=== PATIENT | male | born 1960 | race Caucasian/White ===

== ENCOUNTER → 2020-03-12 14:57 | Outpatient (CLI) | payer BC, SELFPAY ==
--- NOTE | ~2020-03-12 | CT_ITS ---
EXAMINATION: CT abdomen wo con DATE: 03/12/2020 15:22 INDICATION: Umbilical hernia with obstruction, without gangrene TECHNIQUE: Computed tomography (CT) of the abdomen was performed without intravenous contrast. Automa juan exposure control and iterative reconstruction technique were employed. Exam dose: 757.90 mGy-cm total exam DLP. COMPARISON: None. FINDINGS: Status post sternotomy. Mitral valve replacement. Right atrial and ventricular pacemaker le ads. Minimal dependent atelectasis of the lower lobes. Heart size is normal. No pericardial or pleural eff usion. Small sliding hiatal hernia. The liver, gallbladder, bile ducts, spleen, pancreas and pancreatic duct as well as adrenal glands ar e unremarkable on this limited noncontrast examination. No renal mass lesion is evident. No urinary t ract calculus or hydroureteronephrosis. There is atherosclerotic calcification of the abdominal aorta but no aneurysm. No intraperitoneal or retroperitoneal or pelvic mass lesion or adenopathy or ascites. Normal appendix. No bowel obstruction or intraperitoneal free air. Ventral multilocular midline fat-containing abdominal wall hernia. Not completely imaged on this CT a bdomen only examination. Included skeletal structures are unremarkable. IMPRESSION: Ventral mid abdominal wall hernia containing fat; no bowel herniation Status post sternotomy and mitral valve replacement Right atrioventricular pacemaker leads Small sliding hiatal hernia Reviewed, dictated and finalized at [facility]. Reviewed, dictated and finalized at location [facility]. 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
== END ==
PROVIDERS: PCP Family Medicine; Visit Provider Surgery
DX: K42.9 Umbilical hernia without obstruction or gangrene (principal); K44.9 Diaphragmatic hernia without obstruction or gangrene; K43.9 Ventral hernia without obstruction or gangrene; Z95.2 Presence of prosthetic heart valve
CPT/HCPCS: 74150

== ENCOUNTER 2020-03-16 15:08 | Outpatient (CLI) | payer BC, SELFPAY ==
--- NOTE | 2020-03-16 15:10 | ECG_ITS ---
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
== END 2020-03-16 15:09 | disposition home or self-care (01) ==
LOC: ANHSURGERY 15:10
PROVIDERS: PCP Family Medicine; Visit Provider Surgery
DX: K42.0 Umbilical hernia with obstruction, without gangrene (principal); Z01.818 Encounter for other preprocedural examination; I10 Essential (primary) hypertension; I45.10 Unspecified right bundle-branch block
CPT/HCPCS: 36415; 86850; 86900; 86901; 93005

== ENCOUNTER 2020-03-20 01:51 | Outpatient (CLI) | payer BC, SELFPAY ==
[2020-03-20 18:32] LABS: SARS-CoV-2 RNA PCR Negative
== END 2020-03-20 01:52 | disposition home or self-care (01) ==
LOC: ANHCOVIDDT 01:51
PROVIDERS: PCP Family Medicine; Visit Provider Surgery
DX: Z01.812 Encounter for preprocedural laboratory examination (principal); Z20.828 Contact with and (suspected) exposure to other viral communicable diseases
CPT/HCPCS: 87635; C9803; U0003

== ENCOUNTER 2020-03-24 02:39 | Day surgery (SDC) | payer BC, SELFPAY ==
[2020-03-11 14:03] VITALS: BMI 34.1
[2020-03-24] VITALS (9 sets, daily range): BP systolic 101–143; BP diastolic 55–80; PULSE 60–83; RESP 10–20; TEMP 36.2–36.6; O2SAT 92–97; BMI 35.1
[2020-03-24] MEDS: ACETAMINOPHEN 500 MG TABLET 1000 MG PO (06:35)
[2020-03-24] MEDS: KETOROLAC 15 MG/ML VIAL (*BKC) IV PUSH (06:36)
[2020-03-24] MEDS: LACTATED RINGERS 1,000 ML 30 ML IV CONT ×2 (06:36→09:45)
--- NOTE | 2020-03-24 06:50 | P.PNAN_ITS ---
Anes - Initial Pre Proc Eval Procedure: Operation Date: 03/24/20 07:30 Proposed Procedures p Laparoscopic Recurrent Incarcerated Umbilical Hernia Repair With Mesh, Davinci Assisted - Jas Gayle DO Date/Time: 03/24/20 06:50 Surgeon: Jas Gayle DO Pre Op Diagnosis: Recurrent Incarcerated Umbilical Hernia Patient Data Age: 59 Gender: M Height: 5 ft 10 in Weight: 111 kg Last Vital Signs Temp 36.6 C 03/24/20 06:20 Pulse 81 03/24/20 06:20 Resp 20 03/24/20 06:20 BP 143/80 H 03/24/20 06:20 Pulse Ox 97 03/24/20 06:20 Allergies Allergy/AdvReac Type Severity Reaction Status Date / Time No Known Allergies Allergy Verified 03/24/20 06:13 Home Medications Medication Instructions Recorded Confirmed Type apixaban 5 mg tablet 5 mg PO BID 10/27/19 03/24/20 History aspirin 81 mg tablet,delayed 81 mg PO DAILY 10/27/19 03/24/20 History release atorvastatin 10 mg tablet 10 mg PO DAILY #90 tablet 11/17/19 03/24/20 Rx sildenafil 50 mg tablet 50 mg PO DAILY PRN #30 tablet 11/17/19 03/24/20 Rx amlodipine 10 mg PO QAM 03/11/20 03/24/20 History losartan 100 mg PO QAM 03/11/20 03/24/20 History Patient hx anesthesia problems: none Family hx anesthesia problems: none PMFSH Past Medical History Medical History Essential (primary) hypertension History of umbilical hernia Paroxysmal A-fib Pure hypercholesterolemia Surgical History Surgical History H/O umbilical hernia repair Umbilical hernia repair 2008 Dr. Almonte Ventral hernia repair with mesh 2013 Dr. Simon Presence of cardiac pacemaker Status post bilateral inguinal hernia repair right x 2, left x 1 Status post mitral valve repair Family History Family History Mother Family history of alcoholism Family history of liver disease Social History Social History Smoking packs per day: 1 Smoking cigarettes per day: 20.0 Years smoked: 15 Smoking pack-years: 15.00 Smoking status: Former smoker Smoking end date: 10/22/19 Alcohol intake: current Drinks per week: 3 Alcohol use details: 5 DRINKS/MONTH Substance use: never Substance use type: does not use Living arrangements: with family Additional living arrangements comments: SIGNIFICANT OTHER- [facility] 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 Gender identity (if verbalized by the patient): Female Spiritual care concerns: No Anes - Eval Final PreProcedure Day of Procedure 03/24/20 06:50 Patient weight: obese Heart: regular rate and rhythm Lungs: clear to auscultation Airway: Mallampati scale class II and other (upper plate) Neurological: alert and oriented Last oral intake: >/= 8 hours ASA classification: III Emergent: no Anesthetic plan: proceed Anesthesia type and monitoring: general ETT and standard monitoring Informed Consent: The patient's anesthetic plan and its attendant risks and benefits were discussed with the patient/family/POA. Questions were solicited and answers provided to the satisfaction of the patient/famil
--- NOTE | 2020-03-24 07:07 | WPDHPUPDATE1 ---
History and Physical Update Update Date/Time: 03/24/20 07:07 History and Physical has been reviewed, including an updated exam of the patient. There are NO changes in the patient's condition. Risks, benefits, and alternatives have been discussed and questions answered. Patient agrees to proceed with procedure.
--- NOTE | 2020-03-24 07:22 | SUR.PREOP ---
0720; PT WALKED TO BATHROOM. VOIDED
[2020-03-24] MEDS: ceFAZolin 2 GM/D5W 50 ML 2 GM/50 ML BAG IVPB (07:53)
--- NOTE | 2020-03-24 08:36 | SUR.OPER ---
Implant/Symbotex Composite Mesh [id number], exp 2024-09-20 Umbilical.
--- NOTE | 2020-03-24 09:38 | PM.PROC ---
Procedure Note - Detailed Date of procedure: 03/24/20 Pre-op diagnosis: Recurrent Incarcerated Umbilical Hernia Post-op diagnosis: same Procedure performed: 1. Laparoscopic incarcerated recurrent umbilical hernia repair with Symbotex mesh, da Eula assisted 2. Laparoscopic removal of mesh foreign body Description of procedure: Procedure as well as risks, benefits, and alternatives were discussed with the patient. Written consent was obtained and placed in chart prior to procedure. Patient was brought back to surgical suite. He was placed supine on operating table. Time-out was done to confirm patient and procedure. He was then intubated by the anesthesia department. A bump was placed under his left hip, and the bed was flexed slightly to extend the space between his costal margin and iliac crest. His abdomen was prepped and draped in sterile fashion using chlorhexidine prep. A 5 millimeter incision was made in the left upper quadrant, and a 5 millimeter Optiview trocar was advanced through the abdominal layers under direct visualization. Once inside the abdominal cavity, carbon dioxide insufflation was used to create a pneumoperitoneum. His abdomen was inspected. An 8 millimeter incision was made in the left lower quadrant, and an 8 millimeter robotic trocar was placed under direct visualization. Another 8 millimeter incision was made in the left lateral abdomen, and an 8 millimeter robotic trocar was placed under direct visualization. Exparel was infiltrated along the lateral abdominal daniels to perform a transversus abdominis plane block bilaterally. The 5 millimeter port was removed, the incision was extended to 12 millimeters, and a 12 millimeter air seal port was placed under direct visualization. A Brian-Lewis cone was also used to place an 0-Vicryl simple interrupted suture at this trocar site. The robotic arms were brought up to the patient's bedside and secured to the ports. The camera and instruments were inserted, and I then moved over to the robotic console and took control of the camera and instruments. After careful thorough inspection of the abdominal cavity, I began my dissection at the hernia. The incarcerated omentum was dissected free and reduced from within the hernia sac. The old mesh and preperitoneal fat was then excised and removed. The falciform ligament was then taken down for several cm cephalad. I then measured the hernia size. The hernia measured 2 cm by 2 cm. The fascia was closed using an 0-Stratafix running suture in a vertical fashion. A 10 cm x 15 cm Symbotex mesh was then placed within the abdominal cavity. This was oriented vertically with the mesh centered on the hernia defect. The mesh was then secured around the perimeter using 2-0 V-lock running absorbable suture. The repair was inspected, and one final inspection was made around the abdominal cavity. The robotic instruments were then removed, and the robotic arms were disengaged from the trocars. The ports were then removed under direct visualization, the camera was removed, and the pneumoperitoneum was released. The 0 Vicryl transfascial suture was tied down. The skin of the incisions was then approximated using 4-0 Monocryl subcuticular suture. Exofin glue was then applied on top. The patient was then awakened from anesthesia, extubated, and transferred to recovery. Anesthesia: GETA and local (Exparel) Surgeon: Jas Gayle DO Estimated blood loss (mL): 5 Drains: No Complications: No immediate complications Condition: stable Disposition: same day Findings: This is a 59-year-old man who presented with complaints of a painful bulge near his umbilicus. This has been bothering him for the past couple years and has been gradually enlarging. He has a prior history of primary umbilical hernia repair 8-10 years ago and then also had a recurrent hernia repair with mesh about [address] of his abdomen was obtained and this showed evidence of t
[2020-03-24] MEDS: fentaNYL CITRATE INJ (*CRX) 100 MCG/2 ML VIAL 25 MCG IV PUSH ×4 (10:17→10:32)
[2020-03-24] MEDS: oxyCODONE HCL (*CRX) 5 MG TAB IR PO (11:04)
== END 2020-03-24 12:02 | disposition home or self-care (01) ==
PROVIDERS: PCP Family Medicine; Visit Provider Surgery
PROC: (CPT 49653; principal; 2020-03-24 07:30)
DX: K42.0 Umbilical hernia with obstruction, without gangrene (principal); I48.0 Paroxysmal atrial fibrillation; I10 Essential (primary) hypertension; E78.00 Pure hypercholesterolemia, unspecified; Z79.01 Long term (current) use of anticoagulants; Z79.82 Long term (current) use of aspirin; Z95.0 Presence of cardiac pacemaker; Z87.891 Personal history of nicotine dependence; E66.9 Obesity, unspecified; Z68.35 Body mass index [BMI] 35.0-35.9, adult
CPT/HCPCS: 49653; S2900; 88300; A9270; C1781; C9290; J0690; J1100; J1885; J2250; J2405; J2704; J2710; J3010; J7030; J7120

== ENCOUNTER 2020-11-06 08:39 | Outpatient (CLI) | payer BC, SELFPAY ==
[2020-11-06 09:05] LABS: Hemoglobin A1C 5.3 % (<5.7)
[2020-11-06 09:06] LABS: Add Urine Microscopic? YES; Appearance Urine Clear (Clear); Bacteria Urine Trace /hpf; Bilirubin Urine Negative (Negative); Blood Urine Negative (Negative); Color Urine Yellow (Yellow); Glucose Urine UA Negative (Negative); Ketones Urine Negative (Negative); Leukocyte Esterase Ur Negative LEU/UL (NEGATIVE); Mucus Urine Rare /lpf; Nitrate Urine Negative (Negative); Protein Urine Negative (Negative); RBC Urine 0-2 /hpf (0-2); Specific Grav Ur 1.026 (1.001-1.035); Squamous Epithelial Cell Urine Rare /hpf (Few); WBC Urine 0-3 /hpf (0-3)
[2020-11-06 09:09] LABS: Alanine Aminotransferase 31 U/L (4-50); Albumin Level 4.5 g/dL (3.5-5.1); Alkaline Phosphatase 70 U/L (38-126); Anion Gap 9 mmol/L (8-16); Aspartate Amino Transferase 29 U/L (17-59); Bilirubin,Total 0.8 mg/dL (0.2-1.3); Blood Urea Nitrogen 19 mg/dL (9-20); Calcium 9.7 mg/dL (8.4-10.2); Carbon Dioxide 25 mmol/L (22-30); Chloride 106 mmol/L (98-107); Cholesterol 141 mg/dL (0-200); Estimated Glomerular Filt Rate > 60; Glucose 102 mg/dL (65-110); HDL Direct 34 mg/dL; Potassium 3.9 mmol/L (3.4-5.0); Sodium 140 mmol/L (137-145); Triglycerides 153 mg/dL (<150)
[2020-11-06 09:20] LABS: LDL Cholesterol Direct 66 mg/dL
[2020-11-06 09:23] LABS: Hematocrit 45.6 % (42.0-52.0); Hemoglobin 15.7 g/dL (14.0-18.0); Mean Corpuscular HGB Conc 34.4 g/dl (32-36); Mean Corpuscular Hemoglobin 30.5 pg (26-34); Mean Corpuscular Volume 88.5 fl (80-100); Mean Platelet Volume 11.3 fl (7.4-10.4); Platelet Count Result 221 k/mm3 (150-375); Red Blood Count 5.15 M/mm3 (4.6-6.20); Red Cell Distribution Width 13.2 % (11.5-14.5); White Blood Count 6.1 K/mm3 (4.5-10.0)
[2020-11-06 09:40] LABS: Prostate Specific Antigen 0.3 ng/mL (< OR = 4.0)
== END 2020-11-06 08:40 | disposition home or self-care (01) ==
PROVIDERS: PCP Family Medicine; Visit Provider Family Medicine
DX: R73.01 Impaired fasting glucose (principal); E78.00 Pure hypercholesterolemia, unspecified; I10 Essential (primary) hypertension
CPT/HCPCS: 36415; 80053; 80061; 81001; 83036; 84153; 84443; 85027

== ENCOUNTER → 2021-02-15 16:07 | Outpatient (CLI) | payer BC, SELFPAY ==
--- NOTE | ~2021-02-15 | XR_ITS ---
XR knee RT 3V, XR knee LT 3V 02/15/2021 17:05 Indication: Bilateral knee pain Procedure: 3 views each knee Comparison: No prior studies for comparison. Findings: There is anatomic alignment. No significant joint space narrowing. No joint effusion. No ac klet[place] de[place] fracture or traumatic malalignment. There is a corticated ossific density dorsal to the right fem ur seen on the lateral view, possibly related to remote trauma. Impression: 1: No acute bone or joint abnormality. Reviewed, dictated and finalized at location A. Impression: 1: No acute bone or joint abnormality. Impression: 1: No acute bone or joint abnormality.
== END ==
PROVIDERS: PCP Family Medicine; Visit Provider Nurse Practitioner Family
DX: M25.562 Pain in left knee (principal); M25.561 Pain in right knee
CPT/HCPCS: 73562

== ENCOUNTER 2022-09-20 01:58 | Day surgery (SDC) | payer BC, SELFPAY ==
[2022-08-29 14:00] VITALS: BMI 37.3
--- NOTE | 2022-09-19 16:06 | PM.HPGS ---
History of Present Illness History of Present Illness Consent: Risks, benefits, and alternatives have been discussed and questions answered. Patient agrees to proceed with procedure. Chief complaint: hx colon polyps Narrative: Leighton Romero is a 61 year old male referred for colon cancer screening. Six years ago he had a colonoscopy with removal of at least 1 adenomatous polyp Review of Systems Review of Systems: All systems reviewed & are unremarkable except as noted in HPI and below PMFSH Past Medical History Medical History Anxiety Essential (primary) hypertension History of umbilical hernia MARCIE (obstructive sleep apnea) Paroxysmal A-fib Pure hypercholesterolemia REM sleep behavior disorder Surgical History Surgical History H/O umbilical hernia repair Umbilical hernia repair 2008 Dr. Almonte Ventral hernia repair with mesh 2013 Dr. Simon 03/24/20 Laparoscopic incarcerated recurrent umbilical hernia repair with Symbotex mesh, da Eula assisted, Laparoscopic removal of mesh foreign body Presence of cardiac pacemaker Status post bilateral inguinal hernia repair right x 2, left x 1 Status post mitral valve repair Family History Family History Mother Family history of alcoholism Family history of liver disease Social History Social History Smoking packs per day: 1 Smoking cigarettes per day: 20.0 Years smoked: 20 Smoking pack-years: 20.00 Smoking status: Current every day smoker Tobacco type: cigarettes Smoking end date: 10/22/19 Alcohol intake: current Drinks per week: 5 Alcohol use details: 5 DRINKS/MONTH Substance use: never Substance use type: does not use Living arrangements: with friend(s) Additional living arrangements comments: SIGNIFICANT OTHER- [facility] Occupation/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: occupation 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 Gender identity (if verbalized by the patient): Male Spiritual care concerns: No Meds Home Medications and Allergies Home Medications Medication Instructions Recorded Confirmed Type apixaban 5 mg tablet (Eliquis) 5 mg PO BID 10/27/19 08/29/22 History aspirin 81 mg tablet,delayed 81 mg PO DAILY 10/27/19 08/29/22 History release (Adult Low Dose Aspirin) sildenafil 50 mg tablet 50 mg PO DAILY PRN sexual activity 11/17/19 08/29/22 Rx #30 tabs cyanocobalamin (vitamin B-12) 500 500 mcg PO DAILY 02/14/21 08/29/22 History mcg tablet atorvastatin 10 mg tablet 10 mg PO DAILY #90 tabs 09/20/21 08/29/22 Rx losartan 100 mg tablet See Rx Instructions .Route 09/20/21 08/29/22 Rx .COMPLEX #90 tabs amlodipine 10 mg tablet See Rx Instructions .Route 09/22/21 08/29/22 Rx .COMPLEX #90 tabs Allergies Allergy/AdvReac Type Severity Reaction Status Date / Time No Known Allergies Allergy Verified 09/20/22 10:11 Exam Const: General: alert Orientation/consciousness: patient oriented x3 Resp: Auscultation: clear to auscultation bilaterally Cardio: Rhythm: regular rhythm GI: GI Palp: Yes Soft to palpation and No Tenderness to palpation present (GI) Neuro: General: patient oriented x3 Assessment and Plan Assessment and plan (1) Colon cancer screening: Code(s): Z12.11 - Encounter for screening for malignant neoplasm of colon Status: Acute Assessment and Plan: Colonoscopy with possible biopsy or polypectomy or cautery or injection of substances.
[2022-09-20 10:14] VITALS: BP 122/80; PULSE 62; RESP 20; TEMP 36.4; O2SAT 97
[2022-09-20] MEDS: LACTATED RINGERS 1,000 ML 150 ML IV CONT (10:24)
--- NOTE | 2022-09-20 11:28 | WPDANESEPPF ---
Anes - Initial Pre Proc Eval Procedure: Operation Date: 09/20/22 11:30 Proposed Procedures p Colonoscopy - Seth Alvarez MD Date/Time: 09/20/22 11:28 Surgeon: Seth Alvarez MD Pre Op Diagnosis: hx colon polyps Patient Data Age: 61 Gender: M Height: 1.78 m Weight: 115.4 kg Last Vital Signs Temp 97.6 F 09/20/22 10:14 Pulse 62 09/20/22 10:14 Resp 20 09/20/22 10:14 BP 122/80 09/20/22 10:14 Pulse Ox 97 09/20/22 10:14 O2 Del Method Room Air 09/20/22 10:14 Allergies Allergy/AdvReac Type Severity Reaction Status Date / Time No Known Allergies Allergy Verified 09/20/22 10:11 Home Medications Medication Instructions Recorded Confirmed Type apixaban 5 mg tablet (Eliquis) 5 mg PO BID 10/27/19 08/29/22 History aspirin 81 mg tablet,delayed 81 mg PO DAILY 10/27/19 08/29/22 History release (Adult Low Dose Aspirin) sildenafil 50 mg tablet 50 mg PO DAILY PRN sexual activity 11/17/19 08/29/22 Rx #30 tabs cyanocobalamin (vitamin B-12) 500 500 mcg PO DAILY 02/14/21 08/29/22 History mcg tablet atorvastatin 10 mg tablet 10 mg PO DAILY #90 tabs 09/20/21 08/29/22 Rx losartan 100 mg tablet See Rx Instructions .Route 09/20/21 08/29/22 Rx .COMPLEX #90 tabs amlodipine 10 mg tablet See Rx Instructions .Route 09/22/21 08/29/22 Rx .COMPLEX #90 tabs Patient hx anesthesia problems: none Family hx anesthesia problems: none Results Review: All pre-operative results and documents have been reviewed as part of the pre-operative evaluation. [facility] Past Medical History Medical History Anxiety Essential (primary) hypertension History of umbilical hernia MARCIE (obstructive sleep apnea) Paroxysmal A-fib Pure hypercholesterolemia REM sleep behavior disorder Surgical History Surgical History H/O umbilical hernia repair Umbilical hernia repair 2008 Dr. Almonte Ventral hernia repair with mesh 2013 Dr. Simon 03/24/20 Laparoscopic incarcerated recurrent umbilical hernia repair with Symbotex mesh, da Eula assisted, Laparoscopic removal of mesh foreign body Presence of cardiac pacemaker Status post bilateral inguinal hernia repair right x 2, left x 1 Status post mitral valve repair Family History Family History Mother Family history of alcoholism Family history of liver disease Social History Social History Smoking packs per day: 1 Smoking cigarettes per day: 20.0 Years smoked: 20 Smoking pack-years: 20.00 Smoking status: Current every day smoker Tobacco type: cigarettes Smoking end date: 10/22/19 Alcohol intake: current Drinks per week: 5 Alcohol use details: 5 DRINKS/MONTH Substance use: never Substance use type: does not use Living arrangements: with friend(s) Additional living arrangements comments: SIGNIFICANT OTHER- [facility] Occupation/Education: occupation 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 Informed Consent: The patient's anesthetic plan and its attendant risks and benefits were discussed with the patient/family/POA. Questions were solicited and answers provided to the satisfaction of the patient/family/POA.
[2022-09-20 11:35] VITALS: BP 97/58; PULSE 65; RESP 13; O2SAT 92
--- NOTE | 2022-09-20 11:36 | SUR.OPER ---
Ascending Colon polyp retrieved using Rothnet per Dr. Alvarez.
[2022-09-20 11:45] VITALS: BP 105/70; PULSE 72; RESP 21; O2SAT 95
--- NOTE | 2022-09-20 11:54 | SUR.PHASEII ---
Per Dr Alvarez, pt should resume 09/23/22. This was noted on pt's discharge paperwork and pt verbalized understanding.
[2022-09-20 11:55] VITALS: BP 107/73; PULSE 64; RESP 22; O2SAT 98
== END 2022-09-20 12:20 | disposition home or self-care (01) ==
PROVIDERS: PCP Family Medicine; Visit Provider Internal Medicine Gastroenterology
PROC: 0DJD8ZZ Inspection of Lower Intestinal Tract, Via Natural or Artificial Opening Endoscopic (ICD-10-PCS; CPT 45378; principal; 2022-09-20 11:30)
DX: Z12.11 Encounter for screening for malignant neoplasm of colon (principal); D12.2 Benign neoplasm of ascending colon; K64.8 Other hemorrhoids; I10 Essential (primary) hypertension; I48.0 Paroxysmal atrial fibrillation; E78.00 Pure hypercholesterolemia, unspecified; G47.33 Obstructive sleep apnea (adult) (pediatric); F41.9 Anxiety disorder, unspecified; Z95.0 Presence of cardiac pacemaker; F17.210 Nicotine dependence, cigarettes, uncomplicated; E66.9 Obesity, unspecified; Z68.36 Body mass index [BMI] 36.0-36.9, adult; Z79.01 Long term (current) use of anticoagulants; Z79.82 Long term (current) use of aspirin
CPT/HCPCS: 45381; 45385; 88305; J2001; J2704; J7120

== ENCOUNTER 2023-09-24 14:03 | Outpatient (CLI) | payer BC, SELFPAY ==
--- NOTE | ~2023-09-24 | XR_ITS ---
Lumbosacral Spine: AP, oblique, and lateral views Clinical History: Pain COMPARISON: 02/12/2011 Findings: The normal lordotic curve is maintained. No acute fracture evident. There is grade 1 retrol isthesis of L3 over L4. There is moderate degenerative disc narrowing at L1-L2, mild degenerative dis c change at the remaining disc levels. There is advanced facet arthropathy at L4-L5 and L5-S1. Chroni c minimal anterior wedging deformity of L1 noted. The sacroiliac joints are normally outlined. Impression: [id number] degenerative spondylosis, as above, especially the lower lumbar spine. Mild chronic anterior wedging deformity of L1. Reviewed, dictated and finalized at location . Impression: [id number] degenerative spondylosis, as above, especially the lower lumba r spine. Mild chronic anterior wedging deformity of L1.
== END 2023-09-24 14:04 ==
LOC: MICIMG 14:06
PROVIDERS: PCP Family Medicine; Visit Provider Physician Assistant
DX: M54.50 Low back pain, unspecified (principal); M43.06 Spondylolysis, lumbar region; M48.56XA Collapsed vertebra, not elsewhere classified, lumbar region, initial encounter for fracture
CPT/HCPCS: 72110

== ENCOUNTER 2023-12-03 08:18 | Emergency (ER) | payer BC, SELFPAY ==
[2023-12-03 08:30] VITALS: BP 123/77; PULSE 80; RESP 20; TEMP 36.7; O2SAT 98
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
== END 2023-12-03 08:58 | disposition home or self-care (01) ==
PROVIDERS: Emergency Provider Nurse Practitioner; PCP Family Medicine
DX: T22.212A Burn of second degree of left forearm, initial encounter (principal); X08.8XXA Exposure to other specified smoke, fire and flames, initial encounter; L08.9 Local infection of the skin and subcutaneous tissue, unspecified; Z87.891 Personal history of nicotine dependence; I10 Essential (primary) hypertension; I48.0 Paroxysmal atrial fibrillation; E78.00 Pure hypercholesterolemia, unspecified; Z95.0 Presence of cardiac pacemaker; Z79.82 Long term (current) use of aspirin; Z79.01 Long term (current) use of anticoagulants
CPT/HCPCS: 99213; G0463

== ENCOUNTER 2024-11-14 00:20 | Day surgery (SDC) | payer BC, SELFPAY ==
[2024-11-13 14:42] VITALS: BMI 28.4
[2024-11-14] VITALS (11 sets, daily range): BP systolic 102–128; BP diastolic 69–88; PULSE 70–79; RESP 10–17; TEMP 36.3; O2SAT 94–99; BMI 28.4
--- OUTSIDE RECORDS SUMMARY | 2024-11-14 00:24 | XMS_ITS | Encounter Summary ---
Author Organization [facility] Healthcare Address [address] [place] [id number] Care Team Providers Care Livestock Sales Representative Name Role Phone Kaz Mg MD Primary Care Provider Encounter Details Date Type Department Care Team (Late st Contact Info) Description 11/13/2024 Telephone [facility] Medical Group Cardiology [address] [place] [phone] Sakina Orr MD [address] [place] [id number] Social History Tobacco Use Types Packs/Day Years Used Date Smoking Tobacco: Former Smokeless Tobacco: Never Alcohol Use Standard Drinks/Week Comments Yes 0 (1 standard drink = 0.6 oz pur e alcohol) Sex and Gender Information Value Date Recorded Sex Assigned at Not on file Legal Sex Male 11:20 AM CDT Gender Identity Not on file Sexual Orientation Not on file documented as of this encounter Miscellaneous Notes * Telephone Encounter - Nimco Gonzalez RN - 11/13/2024 2:16 PM CDT FYI-WK and CT Scheduled pt for CV at 11/14 at 0830. Reviewed instructions and pt verbalized understanding. Per pt he has not missed any doses of eliquis in the last 30 days. * Telephone Encounter - Marizol Moore NP - 11/13/2024 12:38 PM CDT I forgot Dr. Orr is out of the office right now. Let's offer to get patient scheduled for a cardioversion as long as he hasn't missed any doses of Eliquis. Thanks. * Telephone Encounter - Marizol Moore NP - 11/13/2024 10:50 AM CDT My initial thought is to schedule him for a cardioversion as long as he hasn't missed any doses of Eliquis in the last 30 days, but we can wait and see if Dr. Orr agrees or has another recommendation. * Telephone Encounter - Alcira Herzog RN - 11/13/2024 8:36 AM CDT [employer] Dual Pacemaker Dx; CHB, PAF. DOI 12/14/2016. Latitude remote monitoring Q3 mo, Office pacer checks Q1 yr. Office DDD Pacemaker evaluation demonstrated appropriate device function. Left pectoral incision well approximated without signs of infection. Battery function-Ok, 1.0 year remaining battery life to CHINO. Appropriate lead measurements noted. Presenting rhythm-Aflutter VS. AP-3%, DINING CAR CONDUCTOR-3%. 73 Atrial high rate episodes noted. Per Atrial [place] trend patient in AT/AF since beginning of October 2024. Ventricular rate controlled. Patient reports feeling more tired with AT/AF. No Ventricular high rate episodes noted. Medications; Eliquis. No programming changes made to device settings. See scanned report. Office device f/u due post generator replacement. Latitude remote f/u 02/18/2025. Patient asked what can be done regarding his atrial burden? He verbally expressed concerns of long-term affects of ongoing atrial fib/atrial flutter. Patient has appointment to see Dr Orr on 03/09/2025. Will forward to Marizol Palencia NP for review and treatment options. documented in this encounter Plan of Treatment Not on file documented as of this encounter Visit Diagnoses Not on filedocumented in this encounter Care Teams Livestock Sales Representative Relationship Specialty Start Date End Date Kaz Mg MD [address] [facility] [address] [place] [address] PCP - General 12/05/16 documented as of this encounter
--- OUTSIDE RECORDS SUMMARY | 2024-11-14 00:24 | XMS_ITS | Clinical Summary ---
Author Organization [facility] Address [address] [place] [phone] Care Team Providers Care Assistant Boiler Operator Name Role Phone Kaz Mg MD Primary Care Provider Allergies No known active allergies Medications atorvastatin (LIPITOR) 10 mg tablet take 1 tablet by oral route every day 0 0 7 Active losartan (COZAAR) 100 mg tablet Take 0.5 tablets (50 mg total) by mouth daily Active cyanocobalamin (Vitamin B-12) 500 mcg tabletIndicatio ns:Prevention of Vitamin B12 Deficiency Take 1 tablet (500 mcg total) by mouth daily Active aspirin 81 mg tablet Take 1 tablet (81 mg total) by mouth daily Active amLODIPine (NORVASC) 10 mg tabletIndicatio ns:Essential hypertension, benign Take 1 tablet (10 mg total) by mouth daily. 30 tablet 11 7 Active sildenafiL (VIAGRA) 50 mg tablet Take 1 tablet (50 mg total) by mouth as needed for erectile dysfunction Active Wegovy 1.7 mg/0.75 mL auto-injector Inject 0.75 mL (1.7 mg total) under the skin once 4 Active Eliquis 5 mg tablet TAKE 1 TABLET TWICE A DAY 180 tablet 3 4 Active Active Problems Problem Noted Date Diagnosed Date MARCIE (obstructive sleep apnea) 02/27/2022 S/P mitral valve repair 12/22/2019 PAF (paroxysmal atrial fibrillation) 12/22/2019 Hyperlipidemia 12/16/2018 Overview (12/16/2018): Hyperlipidemia BMI 34.0-34.9,adult 09/10/2017 Assessment & Plan (09/10/2017 9:29 AM CDT): Gained 12 lb since last visit. I advised patient counseled him about the importance of diet monitoring Pericardial effusion 02/12/2017 Assessment & Plan (03/19/2017 9:46 AM LICENSED PSYCHOLOGIST MANAGER): Reduction of the pericardial effusion from large to small. Likely residual from open-heart surgery. Improved. Assessment & Plan (02/12/2017 10:47 AM CDT): Suspect residual pericardial effusion from open-heart surgery. However I will repeat a limited echocardiogram in 1 month to reassess this pericardial effusion. Abdominal pain 01/10/2017 Cardiac pacemaker in situ 12/15/2016 Overview (12/15/2016): [employer] Dual Pacemaker Dx; CHB DOI 12/14/2016. Latitude remote monitoring Q3 mo, Office pacer checks Q1 yr. Assessment & Plan (09/10/2017 9:29 AM CDT): Arrange for pacemaker interrogation. Assessment & Plan (03/19/2017 9:46 AM LICENSED PSYCHOLOGIST MANAGER): Will schedule patient to see Alcira for pacemaker interrogation. Assessment & Plan (02/12/2017 10:48 AM CDT): Will do pacemaker interrogation next visit. Assessment & Plan (01/15/2017 9:13 AM CDT): Baseline EKG today is normal sinus rhythm. Today pacemaker interrogation shows that he is ventricular paced 97% of the time. The PVR interval is short and when we did prolongation of the NE interval he is not pacing anymore and he has intrinsic rhythm. Reinterrogate the device in 1 month Mitral valve insufficiency 11/28/2016 Non-rheumatic mitral regurgitation 10/09/2016 Assessment & Plan (09/10/2017 9:28 AM CDT): Status post mitral valve repair with a ring. Asymptomatic. Continue to observe. Assessment & Plan (03/19/2017 9:45 AM LICENSED PSYCHOLOGIST MANAGER): Status post mitral valve ring. There is evidence that he has maybe mild mitral stenosis. Mean gradient 7 Assessment & Plan (02/12/2017 10:48 AM CDT): Continue aspirin 81 mg daily. Assessment & Plan (01/15/2017 9:09 AM CDT): He is status post mitral valve repair. Continue aspirin 81 mg daily. Will obtain echocardiogram to establish baseline gradient across the mitral valve. Assessment & Plan (11/13/2016 10:37 AM CDT): Severe mitral regurgitation. Will refer to Dr. Lema for mitral valve repair. Assessment & Plan (10/09/2016 1:29 PM CDT): Transesophageal echocardiogram suggestive of severe mitral regurgitation. Flail posterior mitral valve leaflet. Evidence of moderate pulmonary hypertension. Kassie systolic function. Will order coronary angiogram to define the coronary anatomy. After that we will refer the patient for mitral valve repair. Dyspnea on exertion 10/09/2016 Assessment & Plan (01/15/2017 9:10 AM CDT): Marked improvement in symptoms since the mitral wall repair. No significant coronary artery disease on catheterization Assessment & Plan (11/13/2016 10:36 AM CDT): No evidence of obstructive coronary artery disease on catheterization. Pulmonary function test showed fairly small airway disease pattern. Assessment & Plan (10/09/2016 1:30 PM CDT): This could be related to severe mitral regurgitation. But since the patient has been working in [employer] industry for a long time I will order pulmonary function test to exclude lung abnormalities as well. Essential hypertension, benign 10/09/2016 Assessment & Plan (09/10/2017 9:28 AM CDT): Blood pressure is controlled. Continue current treatment. Assessment & Plan (03/19/2017 9:45 AM LICENSED PSYCHOLOGIST MANAGER): Add amlodipine 10 mg p.o. daily. Reassess next visit. Encouraged the patient to stay away from salt. Assessment & Plan (02/12/2017 10:48 AM CDT): A blood pressure is elevated on this visit and on the previous visit. Increase losartan from 50 mg daily to 100 mg daily. Reassess next visit. Assessment & Plan (01/15/2017 9:11 AM CDT): Blood pressure is elevated today. He has stopped taking [id number] mg and losartan 100 mg and he is only on metoprolol 12.5 mg b.i.d.. I advised patient to resume losartan 50 mg daily. Reassess in 1 month Assessment & Plan (11/13/2016 10:37 AM CDT): Controlled Assessment & Plan (10/09/2016 1:30 PM CDT): Controlled. Encounters Date Type Department Care Team Description 11/13/2024 Telephone [facility] Cardiology [address] [place] [address] [place] [phone] Sakina Orr MD 11/12/2024 3:00 PM CDT Ancillary Procedure [facility] Cardiology [address] [facility] [address] [place] [phone] Cardiac pacemaker in situ (Primary Dx); CHB (complete heart block) (HCC); PAF (paroxysmal atrial fibrillation) (HCC) 11/12/2024 Orders Only [facility] Cardiology [address] [place] [address] [place] [phone] Sakina Orr MD PAF (paroxysmal atrial fibrillation) (HCC) (Primary Dx); Cardiac pacemaker in situ; CHB (complete heart block) (HCC) 09/17/2024 8:30 AM CDT Ancillary Procedure [facility] Cardiology [address] [place] [address] [place] [phone] Cardiac pacemaker in situ (Primary Dx); CHB (complete heart block) (HCC); PAF (paroxysmal atrial fibrillation) (HCC) from Last 3 Months Surgical History Surgery Date Site/Laterality Comments HERNIA REPAIR Hernia repair MITRAL VALVE ANNULOPLASTY Medical History Medical History Date Comments Hyperlipidemia Hyperlipidemia Hypertension Hypertension Family History Medical History Relation Name Comments Car Accident Father accident; Alcohol abuse Mother Alcoholism; Relation Name Status Comments Father Mother (Age 50) Social History Tobacco Use Types Packs/Day Years Used Date Smoking Tobacco: Former Smokeless Tobacco: Never Tobacco Cessation:Counseling Given: Not Answered Alcohol Use Standard Drinks/Week Comments Yes 0 (1 standard drink = 0.6 oz pur e alcohol) Sex and Gender Information Value Date Recorded Sex Assigned at Not on file Legal Sex Male 11:20 AM CDT Gender Identity Not on file Sexual Orientation Not on file Obstetrics History Last Filed Vital Signs Vital Sign Reading Time Taken Comments Blood Pressure 126/74 03/11/2024 2:52 PM LICENSED PSYCHOLOGIST MANAGER Pulse 65 03/11/2024 2:52 PM LICENSED PSYCHOLOGIST MANAGER Temperature 36.8 C (98.2 F) 01/15/2020 8:05 AM CDT Respiratory Rate 16 01/15/2017 7:59 AM CDT Oxygen Saturation 96% 03/11/2024 2:52 PM LICENSED PSYCHOLOGIST MANAGER Inhaled Oxygen Concentration - - Weight 107 kg (236 lb) 03/11/2024 2:52 PM LICENSED PSYCHOLOGIST MANAGER Height 177.8 cm (5' 10) 03/11/2024 2:52 PM LICENSED PSYCHOLOGIST MANAGER Body Mass Index 33.86 03/11/2024 2:52 PM LICENSED PSYCHOLOGIST MANAGER Plan of Treatment Health Maintenance Due Date Last Done Comments Colon Cancer Screening-Colonoscopy 1960 Depression Screening 1960 Hepatitis C Screening 1960 Prostate Cancer Screening-PSA 1960 Hepatitis B Screening 1978 Regular Well Visit/Exam 18-64 1978 Zoster Vaccine (1 of 2) 2010 Influenza Vaccine (#1) 2024 DTaP/Tdap/Td Vaccine (2 - Td or Tdap) 11/22/2028 11/22/2018 Pneumococcal vaccine <65 Aged Out No longer eligible based on patient's age to complete this topic Medical Devices Implanted Type Area Tapper Balance Wheel Screw Hole Device Identifier Shelf Expiration Date Model / Serial / Lot Pacemaker-8/2 07/2016 Implanted: by Rossy Garza MD (Quantity not on file) Pacemaker Chest [employer] CHB ESSENTIO MRI [id number] / [id number] / [place] [address] [place] [address] Advance Directives For more information, please contact: [phone] Documents on File Type Date Recorded Patient Regulatory Compliance Officer Expl anation ADVANCE DIRECTIVE 01/16/2017 Advance Di rective Checklist Care Teams Assistant Boiler Operator Relationship Specialty Start Date End Date Kaz Mg MD [address] [place] [address] PCP - General 12/05/16
--- OUTSIDE RECORDS SUMMARY | 2024-11-14 00:24 | XMS_ITS | Encounter Summary ---
Author Organization [facility] Address [address] [facility] [address] [place] [address] Care Team Providers Care Laboratory Tech Name Role Phone Lex Cardenas MD Primary Care Provider [phone] Kza Mg MD Primary Care Provider Miscellaneous, Not In File Primary Care Provider Unavailable Kaz Mg MD Primary Care Provider Encounter Details Date Type Department Care Team ([facility] Contact Info) Description 08/30/2016 Orders Only [facility] ProviderElian MD [address] [place] [id number] Social History Tobacco Use Types Packs/Day Years Used Date Smoking Tobacco: Never Assessed Sex and Gender Information Value Date Recorded Sex Assigned at Not on file Legal Sex Male 11:20 AM CDT Gender Identity Not on file Sexual Orientation Not on file documented as of this encounter Plan of Treatment Not on file documented as of this encounter Procedures Procedure Name Priority Date/Time Associated Diagnosis Comments CARDIOLOGY REPORT 08/30/2016 documented in this encounter Results * CARDIOLOGY REPORT (08/30/2016) Anatomical Region Laterality Modality Other Narrative 08/30/2016 Ordered by an unspecified provider. Historical Provider [facility] JANY BOUDREAUX Final Result documented in this encounter Visit Diagnoses Not on filedocumented in this encounter Care Teams Laboratory Tech Relationship Specialty Start Date End Date Lex Cardenas MD [address] [place] [address] PCP - General 08/24/16 09/04/16 Kaz Mg MD [address] [place] [address] PCP - General 09/05/16 11/30/16 Miscellaneous, Not In File PCP - General 12/01/16 Kaz Mg MD [address] [place] [address] PCP - General 12/05/16 documented as of this encounter
--- OUTSIDE RECORDS SUMMARY | 2024-11-14 00:24 | XMS_ITS | Referral Summary ---
Author Organization [facility] Address [address] [place] [phone] Care Team Providers Care Bradder Name Role Phone Kaz Mg MD Primary Care Provider Encounters Date Type Department Care Team Description 11/13/2024 Telephone [facility] Cardiology [address] [place] [address] [place] [phone] Sakina Orr MD 11/12/2024 Orders Only [facility] Cardiology [address] [place] [address] [place] [phone] Sakina Orr MD PAF (paroxysmal atrial fibrillation) (HCC) (Primary Dx); Cardiac pacemaker in situ; CHB (complete heart block) (HCC) 11/12/2024 3:00 PM CDT Ancillary Procedure [facility] Cardiology [address] [facility] [address] [place] [phone] Cardiac pacemaker in situ (Primary Dx); CHB (complete heart block) (HCC); PAF (paroxysmal atrial fibrillation) (HCC) 09/17/2024 8:30 AM CDT Ancillary Procedure [facility] Cardiology [address] [place] [address] [place] [phone] Cardiac pacemaker in situ (Primary Dx); CHB (complete heart block) (HCC); PAF (paroxysmal atrial fibrillation) (HCC) from Last 3 Months Allergies No known active allergies Medications atorvastatin [...] 02/12/2017 Assessment & Plan (03/19/2017 9:46 AM EARTH SCIENCE TECHNICIAN): Reduction of the pericardial effusion from large to small. Likely residual from open-heart surgery. Improved. Assessment & Plan (02/12/2017 10:47 AM CDT): Suspect residual pericardial effusion from open-heart surgery. However I will repeat a limited echocardiogram in 1 month to reassess this pericardial effusion. Abdominal pain 01/10/2017 Cardiac pacemaker in situ 12/15/2016 Overview (12/15/2016): [employer] Dual Pacemaker Dx; CHB DOI 12/14/2016. Latitude remote monitoring Q3 mo, Office pacer checks Q1 yr. Assessment & Plan (09/10/2017 9:29 AM CDT): Arrange for pacemaker interrogation. Assessment & Plan (03/19/2017 9:46 AM EARTH SCIENCE TECHNICIAN): Will schedule patient to see Alcira for pacemaker interrogation. Assessment & Plan (02/12/2017 10:48 AM CDT): Will do pacemaker interrogation next visit. Assessment & Plan (01/15/2017 9:13 AM CDT): Baseline EKG today is normal sinus rhythm. Today pacemaker interrogation shows that he is ventricular paced 97% of the time. The PVR interval is short and when we did prolongation of the MA interval he is not pacing anymore and he has intrinsic rhythm. Reinterrogate the device in 1 month Mitral valve insufficiency 11/28/2016 Non-rheumatic mitral regurgitation 10/09/2016 Assessment & Plan (09/10/2017 9:28 AM CDT): Status post mitral valve repair with a ring. Asymptomatic. Continue to observe. Assessment & Plan (03/19/2017 9:45 AM EARTH SCIENCE TECHNICIAN): Status post mitral valve ring. 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 Essential hypertension, benign 10/09/2016 Assessment & Plan (09/10/2017 9:28 AM CDT): Blood pressure is controlled. Continue current treatment. Assessment & Plan (03/19/2017 9:45 AM EARTH SCIENCE TECHNICIAN): Add amlodipine 10 mg p.o. daily. Reassess [...] is elevated today. He has stopped taking [id number] mg and losartan 100 mg and he is only on metoprolol 12.5 mg b.i.d.. I advised patient to resume losartan 50 mg daily. Reassess in 1 month Assessment & Plan (11/13/2016 10:37 AM CDT): Controlled Assessment & Plan (10/09/2016 1:30 PM CDT): Controlled. Social History Tobacco Use Types Packs/Day Years [...] on file Sexual Orientation Not on file Last Filed Vital Signs Vital Sign Reading Time Taken Comments Blood Pressure 126/74 03/11/2024 2:52 PM EARTH SCIENCE TECHNICIAN Pulse 65 03/11/2024 2:52 PM EARTH SCIENCE TECHNICIAN Temperature 36.8 C (98.2 F) 01/15/2020 8:05 AM CDT Respiratory Rate 16 01/15/2017 7:59 AM CDT Oxygen Saturation 96% 03/11/2024 2:52 PM EARTH SCIENCE TECHNICIAN Inhaled Oxygen Concentration - - Weight 107 kg (236 lb) 03/11/2024 2:52 PM EARTH SCIENCE TECHNICIAN Height 177.8 cm (5' 10) 03/11/2024 2:52 PM EARTH SCIENCE TECHNICIAN Body Mass Index 33.86 03/11/2024 2:52 PM EARTH SCIENCE TECHNICIAN Plan of Treatment Not on file Medical Devices Implanted Type Area Casting Chipper Device Identifier Shelf Expiration Date Model / Serial / Lot Pacemaker-11/22 Implanted: by Rossy Garza MD (Quantity not on file) Pacemaker Chest [employer] [facility] ESSENTIO MRI [id number] / [id number] / Insurance [facility] CHOICE OOS Advance Directives For more information, please contact: [phone] Documents on File Type Date Recorded Patient Hide Inspector And Sorter Expl anation ADVANCE DIRECTIVE 01/16/2017 Advance Di rective Checklist Care Teams Bradder Relationship Specialty Start Date End Date Kaz Mg MD [address] [place] [address] PCP - General 12/05/16
--- OUTSIDE RECORDS SUMMARY | 2024-11-14 00:24 | XMS_ITS | Encounter Summary ---
Author Organization [facility] Address [address] [facility] [address] [place] [phone] Care Team Providers Care Vinyl Hanger Name Role Phone Kaz Mg MD Primary Care Provider Miscellaneous, Not In File Primary Care Provider Unavailable Kaz Mg MD Primary Care Provider Encounter Details Date Type Department Care Team (Late st Contact Info) Description 09/11/2016 Orders Only [facility] ProviderElian MD [address] [place] [address] Social History Tobacco Use Types Packs/Day Years Used Date Smoking Tobacco: Never Alcohol Use Standard Drinks/Week Comments [...] Priority Date/Time Associated Diagnosis Comments CARDIOLOGY REPORT 09/11/2016 documented in this encounter Results * CARDIOLOGY REPORT (09/11/2016) Anatomical Region Laterality Modality Other Narrative 09/11/2016 Ordered by an unspecified provider. Historical Provider [facility] JANY BOUDREAUX Final Result documented in this encounter Visit Diagnoses Not on filedocumented in this encounter Care Teams Vinyl Hanger Relationship Specialty Start Date End Date Kaz Mg MD [address] [place] [address] PCP - General 09/05/16 11/30/16 Miscellaneous, Not In File PCP - General 12/01/16 Kaz Mg MD [address] [facility] [address] [place] [address] PCP - General 12/05/16 documented as of this encounter
--- NOTE | 2024-11-14 07:00 | ECG_ITS ---
Test Date: 2024-11-14 07:18:20 Measurements Intervals [place] Rate: 81 P: 0 GA: 0 QRS: 43 QRSD: 118 T: 40 QT: 420 QTc: 489 Interpretive Statements ATRIAL FLUTTER ABNORMAL RHYTHM ECG No previous ECG available for comparison Electronically Signed On 11-15-2024 18:30:34 CDT by Kaleb Rutherford M.D.
[2024-11-14 07:50] LABS: Anion Gap 6 mmol/L (4-12); Blood Urea Nitrogen 13 mg/dL (9-20); Calcium 9.4 mg/dL (8.4-10.2); Carbon Dioxide 21 mmol/L (22-30); Chloride 110 mmol/L (98-107); Estimated CRCL calculation 95 ml/min; Estimated Glomerular Filt Rate > 60; Glucose 102 mg/dL (65-110); Magnesium 2.2 mg/dL (1.6-2.3); Potassium 4.3 mmol/L (3.4-5.0); Sodium 137 mmol/L (137-145)
[2024-11-14] MEDS: fentaNYL CITRATE INJ (*CRX) 100 MCG/2 ML VIAL IV PUSH (08:30)
[2024-11-14] MEDS: MIDAZOLAM HCL (*CRX) 2 MG/2 ML VIAL IV PUSH (08:30)
--- NOTE | 2024-11-14 08:30 | ECG_ITS ---
Test Date: 2024-11-14 08:42:04 Measurements Intervals [place] Rate: 79 P: 91 SD: 194 QRS: 2 QRSD: 86 T: 18 QT: 416 QTc: 478 Interpretive Statements SINUS RHYTHM WITH OCCASIONAL ELECTRONIC ATRIAL PACEMAKER OCCASIONAL PREMATURE VENTRICULAR CONTRACTION ABNORMAL RHYTHM ECG Compared to ECG 11/14/2024 07:18:20 Atrial flutter no longer present Electronically Signed On 11-15-2024 18:31:46 CDT by Kaleb Rutherford M.D.
[2024-11-14] MEDS: PROPOFOL IV EMULSION 200 MG/20 ML VIAL 20 MG IV PUSH (08:35)
--- NOTE | 2024-11-14 09:06 | P.SEDATION_ITS ---
Moderate Sedation Note-Pt Data Patient Data Allergies Allergy/AdvReac Type Severity Reaction Status Date / Time No Known Allergies Allergy Verified 11/13/24 15:20 Home Medications ?Medication ?Instructions ?Recorded ?Confirmed ?Type apixaban 5 mg tablet (Eliquis) 5 mg PO BID 10/27/19 11/13/24 History aspirin 81 mg tablet,delayed 81 mg PO DAILY 10/27/19 11/13/24 History release (Adult Low Dose Aspirin) sildenafil 50 mg tablet 50 mg PO DAILY PRN sexual activity 11/17/19 11/13/24 Rx #30 tabs cyanocobalamin (vitamin B-12) 500 500 mcg PO DAILY 02/14/21 11/13/24 History mcg tablet losartan 100 mg tablet See Rx Instructions .Route 09/18/24 11/13/24 Rx .COMPLEX #90 tabs atorvastatin 10 mg tablet 10 mg PO DAILY #90 tabs 10/03/24 11/13/24 Rx semaglutide (weight loss) 2.4 2.4 mg (0.75 mL) subcut WEEKLY #3 11/11/24 11/13/24 Rx mg/0.75 mL subcutaneous pen mL injector amlodipine 10 mg tablet 10 mg PO DAILY 11/13/24 11/13/24 History Current Medications: Active Medications Sodium Chloride (Normal Saline Iv) 1,000 mls @ 30 mls/hr IV CONT .Q24H CLEMENCIA Sedation/Anesthesia: No previous sedation/anesthesia problems (including family history). [facility] Past Medical History Medical History REM sleep behavior disorder MARCIE (obstructive sleep apnea) Anxiety Paroxysmal A-fib History of umbilical hernia Pure hypercholesterolemia Essential (primary) hypertension Surgical History Surgical History H/O umbilical hernia repair Umbilical hernia repair 2008 Dr. Almonte Ventral hernia repair with mesh 2013 Dr. Simon 03/24/20 Laparoscopic incarcerated recurrent umbilical hernia repair with Symbotex mesh, [place] assisted, Laparoscopic removal of mesh foreign body Status post bilateral inguinal hernia repair right x 2, left x 1 Status post mitral valve repair Presence of cardiac pacemaker Family History Family History Mother Family history of alcoholism Family history of liver disease Social History Social History Smoking packs per day: 1 Smoking cigarettes per day: 20.0 Years smoked: 20 Smoking pack-years: 20.00 Smoking status: Never smoker Tobacco type: cigarettes Second hand tobacco smoke exposure: No Smoking end date: 10/22/19 Alcohol intake: never Drinks per week: 5 Alcohol use details: 5 DRINKS/MONTH Substance use: never Substance use type: does not use Living arrangements: with family Additional living arrangements comments: SIGNIFICANT OTHER- SHANTA Occupation/Education: occupation 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 Gender identity (if verbalized by the patient): Male Spiritual care concerns: No Mod Sed Physical Exam Physical Exam Pre Procedural Exam: Normal: Lungs, Heart Size, Heart Rate and Heart Rhythm Hours since solid foods: 12 Hours since liquid intake: 12 Mallampati Classification: class II Internal Medicine - PN: Obj Da Vital Signs Vital Signs: Vital Signs - 24 hr 11/14/24 07:00 11/14/24 08:25 11/14/24 08:30 Temperature 36.3 C L Pulse Rate 70 70 71 Respiratory Rate 17 16 16 Blood Pressure 120/72 121/85 128/88 Pulse Oximetry 98 97 99 Oxygen Delivery Room Air Nasal Cannula Nasal Cannula Oxygen Flow Rate 2 2 11/14/24 08:35 11/14/24 08:40 11/14/24 08:45 Temperature Pulse Rate 72 77 73 Respiratory Rate 12 12 10 L Blood Pressure 111/79 124/76 102/69 Pulse Oximetry 94 94 94 Oxygen Delivery Nasal Cannula Nasal Cannula Room Air Oxygen Flow Rate 2 2 11/14/24 08:50 11/14/24 09:00 Temperature Pulse Rate 74 79 Respiratory Rate 14 14 Blood Pressure 107/78 114/87 Pulse Oximetry 97 97 Oxygen Delivery Room Air Room Air Oxygen Flow Rate Intake/Output Intake/Output: Intake & Output 11/11/24 11/12/24 11/13/24 11/14/24 23:59 23:59 23:59 23:59 Intake Total 0 Balance 0 Meds/Results Medications: Active Medications Generic Name Dose Route Start Last Admin Trade Name Freq PRN Reason Stop Dose Admin Sodium Chloride 1,000 mls @ 30 mls/hr 11/14/24 08:30 Normal Saline Iv IV CONT .Q24H CLEMENCIA Labs 11/14/24 07:26 Labs: Laboratory Results - last 24 hr 11/14/24 07:26 Sodium 137 Potassium 4.3 Chloride 110 H Carbon Dioxide 21 L Anion Gap 6 BUN 13 D Creatinine 0.71 Estim Creat Clear Calc 95 Estimated GFR > 60 Glucose 102 Calcium 9.4 Magnesium 2.2 ASA Classification/Sedation ASA Classification/Sedation ASA Class: III Emergent: No Risks: Risks, benefits and alternatives explained and patient/family accepted plan for sedation. Patient re-evaluated immediately prior to sedation.
--- NOTE | 2024-11-14 09:06 | WPDHPUPDATE1 ---
History and Physical Update Update Date/Time: 11/14/24 08:06 History and Physical has been reviewed, including an updated exam of the patient. There are NO changes in the patient's condition. Risks, benefits, and alternatives have been discussed and questions answered. Patient agrees to proceed with procedure.
--- NOTE | 2024-11-14 09:07 | P.PCNCVR_ITS ---
Cardioversion Cardioversion Date of procedure: 11/14/24 Procedure: Synchronized cardioversion Pre-op diagnosis: Atrial flutter with 3-1 conduction Post-op diagnosis: Same Indications: Atrial flutter Description of procedure: Given low amplitude flutter waves, atrial flutter was confirmed with pacemaker interrogation showing atrial flutter with 3-1 conduction on intracardiac electrogram on device interrogation. Once this was confirmed, time-out was performed and sedation was provided with the following: Propofol 20mg, Fentanyl 100mcg, Versed 2mg Was the patient was adequately sedated, 200 joule of synchronized electricity was delivered. Successful zoroastrian of sinus rhythm was confirmed on intracardiac electrogram via device interrogation. Sedation: Once this was confirmed, time-out was performed and sedation was provided with the following: Propofol 20mg, Fentanyl 100mcg, Versed 2mg Findings: Successful synchronized cardioversion of atrial flutter with zoroastrian of sinus rhythm Conclusion: Continue anticoagulation and home meds. Follow up outpatient.
== END 2024-11-14 09:45 | disposition home or self-care (01) ==
PROVIDERS: PCP Family Medicine; Visit Provider Internal Medicine
PROC: 5A2204Z Restoration of Cardiac Rhythm, Single (ICD-10-PCS; principal; 2024-11-14 08:30)
DX: I48.92 Unspecified atrial flutter (principal)
CPT/HCPCS: 36415; 80048; 83735; 92960; J2250; J2704; J3010; J7030

== ENCOUNTER 2024-12-10 16:53 | Emergency (ER) | payer BC, SELFPAY ==
[2024-12-10 17:02] VITALS: BP 135/63; PULSE 73; RESP 16; TEMP 36.9; O2SAT 100
--- NOTE | 2024-12-10 17:35 | ED.WOUNDLAC ---
HPI - Wound/Laceration General Chief Complaint: Wound/Laceration Stated Complaint: Blister on R big toe Time Seen by Provider: 12/10/24 17:35 Source: patient Mode of arrival: ambulatory Limitations: no limitations History of Present Illness HPI narrative: 64-year-old male presents with blister to left great toe. Patient states that he had itching to left great toe. The next day he noticed a blister. Popped blister opened and drained it. States blisters and came back back care with redness. Is concerned for infection. CMS intact. All systems reviewed and negative except as noted above. Related Data Home Medications ?Medication ?Instructions ?Recorded ?Confirmed ?Last Taken ?Type apixaban 5 mg tablet (Eliquis) 5 mg PO BID 10/27/19 11/13/24 11/13/24 History aspirin 81 mg tablet,delayed 81 mg PO DAILY 10/27/19 11/13/24 11/13/24 History release (Adult Low Dose Aspirin) cyanocobalamin (vitamin B-12) 500 500 mcg PO DAILY 02/14/21 11/13/24 11/13/24 History mcg tablet amlodipine 10 mg tablet 10 mg PO DAILY 11/13/24 11/13/24 11/13/24 History sildenafil 50 mg tablet (Viagra) 50 mg PO DAILY 12/10/24 Unknown History Allergies Allergy/AdvReac Type Severity Reaction Status Date / Time No Known Allergies Allergy Verified 12/10/24 17:08 [facility] Past Medical History Medical History REM sleep behavior disorder MARCIE (obstructive sleep apnea) Anxiety Paroxysmal A-fib History of umbilical hernia Pure hypercholesterolemia Essential (primary) hypertension Surgical History Surgical History H/O umbilical hernia repair Umbilical hernia repair 2008 Dr. Almonte Ventral hernia repair with mesh 2013 Dr. Simon 03/24/20 Laparoscopic incarcerated recurrent umbilical hernia repair with Symbotex mesh, [place] assisted, Laparoscopic removal of mesh foreign body Status post bilateral inguinal hernia repair right x 2, left x 1 Status post mitral valve repair Presence of cardiac pacemaker Family History Family History Mother Family history of alcoholism Family history of liver disease Social History Social History Smoking packs per day: 1 Smoking cigarettes per day: 20.0 Years smoked: 20 Smoking pack-years: 20.00 Smoking status: Never smoker Tobacco type: cigarettes Second hand tobacco smoke exposure: No Smoking end date: 10/22/19 Alcohol intake: never Drinks per week: 5 Alcohol use details: 5 DRINKS/MONTH Substance use: never Substance use type: does not use Living arrangements: with family Additional living arrangements comments: SIGNIFICANT OTHER- [place] Occupation/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 There is no relevant family history pertinent to the presenting complaint. Exam Narrative: GENERAL: This is a well-nourished, well-developed patient, in no apparent distress. HEAD: normocephalic, atraumatic. EYES: PERRL. Sclera clear/white. Vision is grossly intact. EARS: External ears normal NOSE: External nose normal NECK: Neck supple, non-tender without lymphadenopathy, masses or thyromegaly. CARDIOVASCULAR: Regular rate and rhythm without murmurs, gallops, or rubs. RESPIRATORY: Clear to auscultation. Breath sounds equal bilaterally. No wheezes, rales, or rhonchi. SKIN: warm, Dry, intact with no suspicious lesions or rash, good texture and turgor. Blister approximately 3 x 4 cm to left great toe. Tender on palpation. Fluctuant. Surrounding erythema. NEURO: awake, alert, and oriented to person, place and time. There were no obvious focal neurologic abnormalities. EXTREMITIES: No joint tenderness, effusion, or edema noted. Course Course Level of Care: Express Care Visit Vital Signs Vital signs: Vital Signs Temperature 36.9 C 12/10/24 17:02 Pulse Rate 73 12/10/24 17:02 Respiratory Rate 16 12/10/24 17:02 Blood Pressure 135/63 12/10/24 17:02 Pulse Oximetry 100 12/10/24 17:02 Oxygen Delivery Room Air 12/10/24 17:02 Temperature 36.9 C 12/10/24 17:02 Pulse Rate 73 12/10/24 17:02 Respiratory Rate 16 12/10/24 17:02 Blood Pressure 135/63 08/20/25 17:02 Pulse Oximetry 100 12/10/24 17:02 Oxygen Delivery Room Air 12/10/24 17:02 Reviewed Procedures Other Procedure Procedure 1: Other Procedure: blister to left great toe and surrounding skin cleansed with Betadine. drained using 18 gauge needle. Wound culture obtained. Band-Aid placed. MDM - Wound/Laceration MDM Narrative Medical decision making narrative: Patient prescribed doxycycline to treat infection to left great toe. Wound culture results pending. Patient agrees with plan of care. Differential Diagnosis Differential diagnosis: Likely abscess, abrasion and other ( Insect bite, cellulitis) Discharge Plan Discharge Clinical Impression: Infected blister of great toe of left foot Qualifiers: Encounter type: initial encounter Qualified Code(s): S90.422A - Blister (nonthermal), left great toe, initial encounter Patient Disposition: Home Condition: Stable Instructions: Antibiotic Form, Wound Infection (ED) Additional Instructions: take antibiotic as prescribed until gone. Keep wound clean and dry. Follow-up with primary care physician as needed. Patient Language: Guinean Prescriptions: New doxycycline hyclate 100 mg capsule 100 mg PO BID 7 Days Qty: 14 0RF No Action sildenafil [Viagra] 50 mg tablet 50 mg PO DAILY Rx Instructions: administer 30 minutes to 4 hours before activity Eliquis 5 mg tablet 5 mg PO BID aspirin [Adult Low Dose Aspirin] 81 mg tablet,delayed release (DR/EC) 81 mg PO DAILY cyanocobalamin (vitamin B-12) 500 mcg tablet 500 mcg PO DAILY amlodipine 10 mg tablet 10 mg PO DAILY losartan 100 mg tablet See Rx Instructions .ROUTE .COMPLEX Qty: 90 3RF Dose Instruction: TAKE 1 TABLET DAILY Rx Instructions: TAKE 1 TABLET DAILY atorvastatin 10 mg tablet 10 mg PO DAILY Qty: 90 3RF semaglutide (weight loss) 2.4 mg/0.75 mL pen injector 2.4 mg subcut WEEKLY Qty: 3 4RF Follow-up/Referrals: Kaz Mg MD [Primary Care Provider, [facility]] Time of Disposition: 17:45
== END 2024-12-10 17:53 | disposition home or self-care (01) ==
PROVIDERS: Emergency Provider Nurse Practitioner Family; PCP Family Medicine
DX: S90.422A Blister (nonthermal), left great toe, initial encounter (principal); L08.9 Local infection of the skin and subcutaneous tissue, unspecified; X58.XXXA Exposure to other specified factors, initial encounter; I48.0 Paroxysmal atrial fibrillation; I10 Essential (primary) hypertension; E78.00 Pure hypercholesterolemia, unspecified; Z95.0 Presence of cardiac pacemaker; Z79.01 Long term (current) use of anticoagulants; Z79.82 Long term (current) use of aspirin
CPT/HCPCS: 10140; 87070; 87075; 87205; 99213; G0463